=== PATIENT | male | born 1950 | race Caucasian/White ===

== ENCOUNTER 2020-04-27 12:42 | Emergency (ER) | payer MEDICARE, SELFPAY ==
[2020-04-27 12:54] VITALS: BP 121/76; PULSE 62; RESP 18; TEMP 35.8; O2SAT 96
[2020-04-27 14:28] LABS: Basophils Percent Auto 0.3 % (0.2-1.2); Eosinophils Absolute Auto 0.2 K/mm3 (0-0.3); Eosinophils Percent Auto 2.1 % (0-4.4); Hematocrit 40.3 % (42.0-52.0); Hemoglobin 12.7 g/dL (14.0-18.0); Immature Granulocyte Absolute 0.03 K/mm3 (0.00-0.031); Immature Granulocyte Percent A 0.3 % (0-0.5); Lymphocytes Absolute Auto 1.66 K/mm3 (0.9-3.2); Lymphocytes Percent Auto 17.3 % (18.3-44.2); Mean Corpuscular HGB Conc 31.5 g/dl (32-36); Mean Corpuscular Hemoglobin 28.6 pg (26-34); Mean Corpuscular Volume 90.8 fl (80-100); Monocytes Absolute Auto 0.8 K/mm3 (0.1-0.6); Monocytes Percent Auto 8.7 % (2.6-8.5); Neutrophils Absolute Auto 6.9 K/mm3 (1.3-6.7); Neutrophils Percent Auto 71.3 % (45.5-73.1); Platelet Count Result 214 k/mm3 (150-375); Red Blood Count 4.44 M/mm3 (4.6-6.20); Red Cell Distribution Width 13.2 % (11.5-14.5); White Blood Count 9.6 K/mm3 (4.5-10.0)
[2020-04-27 14:32] LABS: Add Urine Microscopic? YES; Appearance Urine Clear (Clear); Bacteria Urine Trace /hpf; Bilirubin Urine Negative (Negative); Color Urine Yellow (Yellow); Glucose Urine UA Negative (Negative); Ketones Urine Negative (Negative); Leukocyte Esterase Ur 2+ LEU/UL (Negative); Mucus Urine Few /lpf; Nitrate Urine Negative (Negative); Protein Urine 1+ mg/dL (Negative); Specific Grav Ur 1.027 (1.001-1.035); WBC Urine >75 /hpf
[2020-04-27 14:33] LABS: Blood Urine Negative (Negative)
[2020-04-27 14:37] LABS: Alanine Aminotransferase 19 U/L (4-50); Albumin Level 4.5 g/dL (3.5-5.1); Alkaline Phosphatase 54 U/L (38-126); Aspartate Amino Transferase 26 U/L (17-59); Bilirubin,Total 0.4 mg/dL (0.2-1.3); Blood Urea Nitrogen 23 mg/dL (9-20); Calcium 9.6 mg/dL (8.4-10.2); Carbon Dioxide 27 mmol/L (22-30); Chloride 105 mmol/L (98-107); Estimated CRCL calculation 79 ml/min; Estimated Glomerular Filt Rate > 60; Glucose 85 mg/dL (75-110); Potassium 4.7 mmol/L (3.4-5.0); Sodium 139 mmol/L (137-145)
[2020-04-27 15:54] VITALS: BP 139/79; PULSE 54; RESP 16; O2SAT 100
--- NOTE | 2020-04-27 15:54 | ED.GENADULT ---
HPI - General Adult General Chief complaint: Urogenital-Male Stated complaint: CAN'T PEE ANYMORE Time Seen by Provider: 04/27/20 13:30 History of Present Illness HPI narrative: Patient is a 69 y/o male complaining severe dysuria and urgency for several day. There is no alleviating or exacerbating factor. He states that he is able to urinate, but only dribbles and urinates small amount. He does not feel any bladder distention or abdominal pain. He has no fever, chill, abdominal pain or back pain. Related Data Home Medications Medication Instructions Recorded Confirmed multivitamin 1 tablet PO DAILY 12/02/19 02/19/20 naproxen sodium 220 mg tablet 220 mg PO DAILY PRN tablet 12/02/19 02/19/20 omega-3 fatty acids 500 mg PO DAILY 12/02/19 02/19/20 albuterol sulfate [ProAir HFA] 2 puff INHALATION DAILY 04/27/20 Allergies Allergy/AdvReac Type Severity Reaction Status Date / Time No Known Allergies Allergy Verified 04/27/20 12:59 Review of Systems Constitutional: Constitutional: Denies chills, Denies fever(s), Denies headache(s) and Denies weakness Eyes: Eyes: Denies blurry vision ENT: Denies headache(s) and Denies neck pain Cardiovascular: Cardiovascular: Denies chest pain and Denies dyspnea Respiratory: Respiratory: Denies cough and Denies dyspnea Gastrointestinal: Gastrointestinal: Denies abdominal pain, Denies diarrhea, Denies nausea and Denies vomiting Genitourinary: Genitourinary: Denies hematuria, Reports oliguria and Reports dysuria Musculoskeletal: Musculoskeletal: Denies back pain and Denies neck pain Neurologic: Denies headache(s) and Denies weakness [facility] Past Medical History Medical History COPD with asthma Depression Difficulty controlling anger Dyslipidemia Environmental allergies Thoracic ascending aortic aneurysm Unspecified osteoarthritis, unspecified site Family History Family History Other Carcinoma of colon Diabetes mellitus Family history of cardiovascular disease Social History Social History Smoking status: Former smoker Second hand tobacco smoke exposure: No Smoking end date: 10/23/08 Alcohol intake: current Substance use: never Substance use type: does not use Gender identity (if verbalized by the patient): Male Exam Const: General: no acute distress and well developed Orientation/consciousness: oriented to person, oriented to place, oriented to time and patient oriented x3 HENMT: Head: normocephalic Ears: external ears normal General nose exam: Normal external nose present Eyes: General: appearance normal, both eyes and all related structures Conjunctivae: conjunctivae normal Neck: Neck: normal visual inspection and full ROM Chest: Chest palpation & inspection: normal inspection of the chest and no tenderness Resp: Effort & Inspection: normal respiratory effort Auscultation: clear to auscultation bilaterally Cardio: Rate: regular rate Rhythm: regular rhythm GI: GI Palp: No abdominal tenderness and Yes Soft to palpation Skin: General skin exam: normal color and turgor normal Neuro: General: oriented to person, oriented to place, oriented to time and patient oriented x3 Cognition (Neuro): normal cognition Extrem: General: normal to inspection, full ROM and no pedal edema Psych: Appearance: grossly normal Mental Status: mental status grossly normal Affect: normal affect Course Vital Signs Vital signs: Vital Signs Temperature 35.8 C L 04/27/20 12:54 Pulse Rate 62 04/27/20 12:54 Respiratory Rate 18 04/27/20 12:54 Blood Pressure 121/76 04/27/20 12:54 Pulse Oximetry 96 04/27/20 12:54 Temperature 35.8 C L 04/27/20 12:54 Pulse Rate 62 04/27/20 17:19 Respiratory Rate 17 04/27/20 17:19 Blood Pressure 145/82 H 04/27/20 17:19 Pulse Oximetry 98 04/27/20 1
[2020-04-27 17:19] VITALS: BP 145/82; PULSE 62; RESP 17; O2SAT 98
== END 2020-04-27 17:20 | disposition home or self-care (01) ==
PROVIDERS: Emergency Medicine Emergency Medical Services; Emergency Provider Emergency Medicine; PCP Family Medicine
DX: N39.0 Urinary tract infection, site not specified (principal); N41.9 Inflammatory disease of prostate, unspecified; J44.9 Chronic obstructive pulmonary disease, unspecified; E78.5 Hyperlipidemia, unspecified; M19.90 Unspecified osteoarthritis, unspecified site; Z87.891 Personal history of nicotine dependence
CPT/HCPCS: 36415; 80053; 81001; 85025; 87077; 87086; 87088; 87186; 99283

== ENCOUNTER → 2020-07-10 10:03 | Outpatient (CLI) | payer MEDICARE, SELFPAY ==
--- NOTE | ~2020-07-10 | XR_ITS ---
XR chest 2V 07/10/2020 13:26 Indication: Right pneumothorax Procedure: 2 view chest Comparison: 05/30/[address] dated 07/17/2019 Findings: There is right basilar pneumonia with small right pleural effusion. Heart size normal. Left lung clear. No pneumothorax. Impression: 1: Right lower lobe pneumonia with small pleural effusion. Reviewed, dictated and finalized at location B. Impression: 1: Right lower lobe pneumonia with small pleural effusion.
== END ==
PROVIDERS: PCP Family Medicine
DX: J93.9 Pneumothorax, unspecified (principal)
CPT/HCPCS: 71046

== ENCOUNTER 2020-07-23 09:23 | Emergency (ER) | payer MEDICARE, SELFPAY ==
[2020-07-23] VITALS (12 sets, daily range): BP systolic 131–163; BP diastolic 57–86; PULSE 59–76; RESP 12–24; TEMP 36.7; O2SAT 91–97
--- NOTE | ~2020-07-23 | CT_ITS ---
EXAMINATION: CT brain wo con EXAM DATE: 07/23/2020 11:57 INDICATION: Dizziness. TECHNIQUE: Spiral CT of the head was performed without contrast. Axial, coronal and sagittal images were reviewed. The dose-length product (DLP) for this examination was 605.33 mGy-cm. The exposure w as tailored according to patient size, and iterative reconstruction (ASIR) was used as additional dos e reduction technique. There is no prior study for comparison. FINDINGS: Contrast from the pulmonary scan performed earlier. There is no acute intraparenchymal hemo rrhage. No evidence of intraparenchymal brain mass lesion. No evidence of acute infarction. There is no mass effect or midline shift. The ventricles are normal in size. There are no extra-axial col lections. There are no acute calvarial fractures. Old bilateral medial orbital wall fractures. Soft tissue is unremarkable. The visualized sinuses and mastoid air cells are well aerated. IMPRESSION: 1. No acute intracranial findings. Reviewed, dictated and finalized at location A.
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
--- NOTE | ~2020-07-23 | XR_ITS ---
EXAMINATION: XR chest 1V portable DATE: 07/23/2020 10:01 INDICATION: Cough and shortness of breath. TECHNIQUE: A single frontal view of the chest was obtained. COMPARISON: Chest 2 views 07/10/2020, chest CT 07/17/2019 FINDINGS: There is mild atelectasis at right lung base. There is a small right pleural effusion. No p neumothorax. The heart size is normal. Again seen are multiple right-sided rib fractures that may be subacute or chronic. IMPRESSION: 1. Mild atelectasis at right lung base. 2. Small right pleural effusion. Reviewed, dictated and finalized at location A.
--- NOTE | 2020-07-23 09:31 | ECG_ITS ---
Measurements Intervals [place] Rate: 68 P: 64 WI: 181 QRS: -14 QRSD: 95 T: 50 QT: 387 QTc: 413 Interpretive Statements SINUS RHYTHM EARLY PRECORDIAL R/S TRANSITION BASELINE ARTIFACT- I, II, III, AVR BORDERLINE ECG Electronically Signed On 07-23-2020 9:38:27 CDT by Marlon Steel D.O.
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
[2020-07-23 10:06] LABS: Basophils Percent Auto 0.4 % (0.2-1.2); Eosinophils Absolute Auto 0.5 K/mm3 (0-0.3); Eosinophils Percent Auto 5.2 % (0-4.4); Hematocrit 36.6 % (42.0-52.0); Hemoglobin 11.6 g/dL (14.0-18.0); Immature Granulocyte Absolute 0.08 K/mm3 (0.00-0.031); Immature Granulocyte Percent A 0.9 % (0-0.5); Lymphocytes Absolute Auto 1.59 K/mm3 (0.9-3.2); Lymphocytes Percent Auto 17.8 % (18.3-44.2); Mean Corpuscular HGB Conc 31.7 g/dl (32-36); Mean Corpuscular Hemoglobin 28.4 pg (26-34); Mean Corpuscular Volume 89.5 fl (80-100); Mean Platelet Volume 9.6 fl (7.4-10.4); Monocytes Absolute Auto 0.6 K/mm3 (0.1-0.6); Monocytes Percent Auto 6.4 % (2.6-8.5); Neutrophils Absolute Auto 6.2 K/mm3 (1.3-6.7); Neutrophils Percent Auto 69.3 % (45.5-73.1); Platelet Count Result 221 k/mm3 (150-375); Red Blood Count 4.09 M/mm3 (4.6-6.20); Red Cell Distribution Width 13.8 % (11.5-14.5); White Blood Count 8.9 K/mm3 (4.5-10.0)
[2020-07-23 10:08] LABS: INR 1.1; Prothrombin Time 13.4 Seconds (11.1-14.7)
[2020-07-23 10:09] LABS: Partial Thromboplastin Time 26.4 SECONDS (22.3-36.8)
[2020-07-23 10:16] LABS: Alanine Aminotransferase 21 U/L (4-50); Albumin Level 3.8 g/dL (3.5-5.1); Alkaline Phosphatase 77 U/L (38-126); Anion Gap 9 mmol/L (8-16); Aspartate Amino Transferase 21 U/L (17-59); Bilirubin,Total 0.3 mg/dL (0.2-1.3); Blood Urea Nitrogen 21 mg/dL (9-20); Calcium 9.1 mg/dL (8.4-10.2); Carbon Dioxide 28 mmol/L (22-30); Chloride 105 mmol/L (98-107); Estimated CRCL calculation 93 ml/min; Estimated Glomerular Filt Rate > 60; Glucose 176 mg/dL (75-110); Potassium 3.6 mmol/L (3.4-5.0); Sodium 142 mmol/L (137-145)
[2020-07-23 10:24] LABS: NT Pro B Type Natriuretic Pept 441 PG/ML (5-100)
[2020-07-23 10:43] LABS: Troponin I < 0.012 ng/mL (0.000-0.034)
[2020-07-23] MEDS: ALBUTEROL SULFATE NEB 2.5 MG/0.5 ML INH 5 MG INHALATION (10:55)
[2020-07-23] MEDS: IPRATROPIUM BR 0.02% INH SOLN 0.5 MG/2.5 ML VIAL INHALATION (10:55)
[2020-07-23] MEDS: MECLIZINE HCL 25 MG TABLET PO (11:53)
[2020-07-23] MEDS: methylPREDNISolone SOD SUCC 125 MG VIAL IV PUSH (12:23)
== END 2020-07-23 13:20 | disposition home or self-care (01) ==
PROVIDERS: Emergency Provider Emergency Medicine; PCP Family Medicine
DX: J44.9 Chronic obstructive pulmonary disease, unspecified (principal); J90 Pleural effusion, not elsewhere classified; R42 Dizziness and giddiness; E78.5 Hyperlipidemia, unspecified; M19.90 Unspecified osteoarthritis, unspecified site; Z87.891 Personal history of nicotine dependence
CPT/HCPCS: 36415; 70450; 71045; 71275; 80053; 83605; 83880; 84484; 85025; 85610; 85730; 87040; 93005; 94640; 96374; 99284; A9270; J2930; Q9967

== ENCOUNTER 2020-12-21 11:42 | Outpatient (CLI) | payer MEDICARE, SELFPAY | END 2020-12-21 11:43 | disposition home or self-care (01) | LOC: ANHCOVIDVC 11:42 | PROVIDERS: PCP Family Medicine | DX: Z23 Encounter for immunization (principal) | CPT/HCPCS: 0001A; 91300 ==

== ENCOUNTER 2021-01-11 11:18 | Outpatient (CLI) | payer MEDICARE, SELFPAY | END 2021-01-11 11:19 | disposition home or self-care (01) | LOC: ANHCOVIDVC 11:18 | PROVIDERS: PCP Family Medicine | DX: Z23 Encounter for immunization (principal) | CPT/HCPCS: 0002A; 91300 ==

== ENCOUNTER → 2022-01-31 15:21 | Outpatient (CLI) | payer MEDICARE, SELFPAY ==
--- NOTE | ~2022-01-31 | XR_ITS ---
EXAMINATION: XR chest 2V DATE: 01/31/2022 15:39 INDICATION: Chronic obstructive pulmonary disease. TECHNIQUE: Frontal and lateral views of the chest were obtained on 3 radiographs. COMPARISON: Chest single view 07/23/2020, chest CT 07/23/2020 FINDINGS: There is mild atelectasis at right lung base. No pleural effusion or pneumothorax. The hear t size is normal. There are old healed right rib fractures. IMPRESSION: 1. Mild atelectasis at right lung base. Reviewed, dictated and finalized at location A.
== END ==
PROVIDERS: PCP Family Medicine; Visit Provider Nurse Practitioner Family
DX: J44.1 Chronic obstructive pulmonary disease with (acute) exacerbation (principal); J45.901 Unspecified asthma with (acute) exacerbation; R05.9 Cough, unspecified; R91.8 Other nonspecific abnormal finding of lung field
CPT/HCPCS: 71046

== ENCOUNTER → 2022-03-10 07:47 | Outpatient (CLI) | payer MEDICARE, SELFPAY ==
--- NOTE | ~2022-03-10 | CT_ITS ---
EXAMINATION: CT lung screening DATE: 03/10/2022 08:25 INDICATION: Personal history of tobacco dependence TECHNIQUE: Computed tomography (CT) of the chest was performed without intravenous contrast. The dose -length product was 371.08 mGy-cm. Automated exposure control and iterative reconstruction technique were employed. COMPARISON: CT dated 07/23/2020 FINDINGS: There is emphysema. No endobronchial lesions. There are chronic interstitial changes in the lung periphery predominantly affecting the mid and lower lungs. There is a 5 mm right lower lobe nod ule, image 95. No pneumothorax. Mild thoracic spondylosis with accentuated kyphosis. There are multip le healed right rib fractures. There is ascending thoracic aortic aneurysm measuring 4.6 cm just abov e the aortic root. The upper abdomen is unremarkable. IMPRESSION: 1. Lung-RADS category 2: Benign appearance or behavior. Continue annual screening with noncontrast lo w-dose chest CT in 12 months. Reviewed, dictated and finalized at location B. IMPRESSION: 1. Lung-RADS category 2: Benign appearance or behavior. Continue annual screeni ng with noncontrast low-dose chest CT in 12 months.
== END ==
PROVIDERS: PCP Family Medicine; Visit Provider Family Medicine
DX: Z12.2 Encounter for screening for malignant neoplasm of respiratory organs (principal); Z87.891 Personal history of nicotine dependence
CPT/HCPCS: 71271

== ENCOUNTER 2022-08-24 11:35 | Outpatient (CLI) | payer MEDICARE, SELFPAY ==
[2022-08-24 19:45] LABS: Alanine Aminotransferase 26 U/L (6-50); Albumin Level 4.4 g/dL (3.5-5.1); Alkaline Phosphatase 46 U/L (38-126); Anion Gap 9 mmol/L (8-16); Aspartate Amino Transferase 33 U/L (17-59); Bilirubin,Total 0.5 mg/dL (0.2-1.3); Blood Urea Nitrogen 27 mg/dL (9-20); Calcium 9.5 mg/dL (8.4-10.2); Carbon Dioxide 23 mmol/L (22-30); Chloride 107 mmol/L (98-107); Estimated Glomerular Filt Rate 50; Glucose 105 mg/dL (65-110); Potassium 4.4 mmol/L (3.4-5.0); Sodium 139 mmol/L (137-145)
[2022-08-24 20:01] LABS: Hemoglobin A1C 5.8 % (<5.7)
== END 2022-08-24 11:36 | disposition home or self-care (01) ==
LOC: ANHGOSHLAB 11:37
PROVIDERS: PCP Family Medicine; Visit Provider Family Medicine
DX: R73.03 Prediabetes (principal); E78.5 Hyperlipidemia, unspecified; Z79.899 Other long term (current) drug therapy
CPT/HCPCS: 36415; 80053; 83036

== ENCOUNTER 2023-05-18 02:15 | Day surgery (SDC) | payer MEDICARE, SELFPAY ==
[2023-05-08 15:05] VITALS: BMI 33.8
[2023-05-18 07:37] VITALS: BP 103/70; PULSE 58; RESP 16; TEMP 35.7; O2SAT 93
[2023-05-18] MEDS: LACTATED RINGERS 1,000 ML 150 ML IV CONT (07:45)
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
[2023-05-18 09:05] VITALS: BP 100/53; PULSE 50; RESP 17; O2SAT 97
[2023-05-18 09:15] VITALS: BP 116/66; PULSE 52; RESP 14; O2SAT 97
[2023-05-18 09:25] VITALS: BP 116/71; PULSE 51; RESP 14; O2SAT 96
== END 2023-05-18 09:29 | disposition home or self-care (01) ==
PROVIDERS: PCP Family Medicine; Visit Provider Internal Medicine Gastroenterology
PROC: 0DJD8ZZ Inspection of Lower Intestinal Tract, Via Natural or Artificial Opening Endoscopic (ICD-10-PCS; CPT 45378; principal; 2023-05-18 09:00)
DX: Z12.11 Encounter for screening for malignant neoplasm of colon (principal); K57.30 Diverticulosis of large intestine without perforation or abscess without bleeding; D12.4 Benign neoplasm of descending colon; K64.8 Other hemorrhoids; J44.9 Chronic obstructive pulmonary disease, unspecified; Z80.0 Family history of malignant neoplasm of digestive organs; F32.A Depression, unspecified; E78.5 Hyperlipidemia, unspecified; I71.21 Aneurysm of the ascending aorta, without rupture; E55.9 Vitamin D deficiency, unspecified; F12.90 Cannabis use, unspecified, uncomplicated; Z87.891 Personal history of nicotine dependence; E66.9 Obesity, unspecified; Z68.32 Body mass index [BMI] 32.0-32.9, adult; Z79.51 Long term (current) use of inhaled steroids
CPT/HCPCS: 45385; 88305; J2704; J7120

== ENCOUNTER 2024-07-11 07:58 | Outpatient (RCR) | payer MEDICARE, SELFPAY ==
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
== END 2024-07-17 11:37 | disposition home or self-care (01) ==
LOC: ANHGOSHPT 07:58
PROVIDERS: PCP Family Medicine; Visit Provider Family Medicine
DX: M25.511 Pain in right shoulder (principal); G89.29 Other chronic pain
CPT/HCPCS: 97110; 97161

== ENCOUNTER 2024-07-12 13:44 | Outpatient (CLI) | payer MEDICARE, SELFPAY ==
--- NOTE | ~2024-07-12 | CT_ITS ---
EXAMINATION:CT lung screening DATE: 07/12/2024 14:01 INDICATION: Personal history of nicotine dependence. Smoker who quit 10 years ago with 40 pack year h istory. TECHNIQUE: Computed tomography (CT) of the chest was performed without intravenous contrast. Automate d exposure control and iterative reconstruction technique were employed. The dose-length product (DLP ) was 326.33 mGy-cm. COMPARISON: Chest CT 03/10/2022 FINDINGS: There is moderate emphysema. There is mild atelectasis bilaterally. No pleural effusion. Th e heart size is normal. There are coronary artery calcifications. No pericardial effusion. There are old healed right rib fractures. There are bridging endplate osteophytes at multiple levels in the spi ne, consistent with diffuse idiopathic skeletal hyperostosis (DISH). There is mild chronic anterior w edging of multiple vertebral bodies. IMPRESSION: 1. Lung-RADS category 1: Negative. Continue annual screening with noncontrast low-dose chest CT in 12 months. Reviewed, dictated and finalized at location A. IMPRESSION: 1. Lung-RADS category 1: Negative. Continue annual screening with noncontrast l ow-dose chest CT in 12 months.
== END 2024-07-12 13:45 | disposition home or self-care (01) ==
PROVIDERS: PCP Family Medicine; Visit Provider Family Medicine
DX: Z12.2 Encounter for screening for malignant neoplasm of respiratory organs (principal); Z87.891 Personal history of nicotine dependence
CPT/HCPCS: 71271